=== PATIENT | male | born 1935 | race Caucasian/White ===

== ENCOUNTER → 2017-06-25 | Outpatient (CLI) | payer OTHER ==
[~2017-06-25] MED LIST: ASPIRIN; ASPIRIN325 PO; ATORVASTATIN CA40 MG PO; CALCIUM MAGNES1 EAC2 PO; CARVEDILOL12.5 MG PO; DUONEB 2.5-0.5 M3 ML INH; ELMIRON 100 MG100 M1 PO; FENOFIBRATE160 MG PO; FISH OIL 1,001000 M1 PO; FISH OIL 1,001000 M2 PO; FLOMAX0.4 MG PO; GLUCOPHAGE XR750 MG PO; KLOR-CON 1010 MEQ PO; LASIX 20 MG TAB20 MG PO; LASIX 40 MG TAB40 M2 PO; LEVAQUIN 500 M500 M2 PO; LEVAQUIN 500 M500 M4 PO; LOTREL 2.5-101 EACH PO; MACROBID 100 M100 M2 PO; MEDROLDOSEPACK PO; MULTIVITAMINS PO; NIASPAN ER 101000 M1 PO; NITROGLYCERIN0.4 MG SUBLING; PLAVIX 75 MG TA75 M1 PO; PLAVIX 75 MG TA75 MG PO; PREDNISONE 20 M20 MG PO; PROSCAR; PROSCAR 5MG TABL5 MG PO; VITAMIN D2000 UNIT PO
[2017-06-25 13:07] LABS: CALCIUM 8.9 mg/dL (8.5-10.1); CREATININE 1.2 mg/dL (0.6-1.3); POTASSIUM 3.4 mmol/L (3.5-5.1)
--- NOTE | 2017-07-22 16:50 | EKG ---
[place] [address] ELECTROCARDIOGRAM REPORT Name: MIKE STEWART Room: [facility]#: [id number] Admission: 06/25/17 Attend Phys: Corazon Bravo RN Discharge: Date of : 31 Report #: [id number] THIS REPORT FOR: //name// [facility] Test Date: 2017-07-22 Test Time: 13:37:15 Pat Name: MIKE STEWART Department: Room: Gender: M Home Companion: 25 : 1935 Requested By: Phillip Villatoro Order Number: [id number] Rachele MD: Wale Ortez Measurements Intervals [place] Rate: 69 P: 46 [place]: 213 QRS: 26 QRSD: 158 T: 209 QT: 453 QTc: 486 Interpretive Statements Sinus rhythm Ventricular premature complex Borderline prolonged [place] interval Left bundle branch block Compared to ECG 09/10/2016 14:56:04 Ventricular premature complex(es) now present Electronically Signed On 07-22-2017 16:49:49 BRUSH CLEARING LABORER by Wale Ortez [email or web address] <ELECTRONICALLY SIGNED> By: Wale Ortez MD, [facility] 07/22/17 1649 36 36 Wale Ortez MD, [facility] /EPI
== END ==
LOC: M.LAB 12:36
PROVIDERS: Nurse Practitioner
DX: I13.0 Hypertensive heart and chronic kidney disease with heart failure and stage 1 through stage 4 chronic kidney disease, or unspecified chronic kidney disease (principal); I50.9 Heart failure, unspecified; N18.3 Chronic kidney disease, stage 3 (moderate); E11.22 Type 2 diabetes mellitus with diabetic chronic kidney disease

== ENCOUNTER → 2017-07-22 | Outpatient (CLI) | payer OTHER ==
[2017-07-22 14:12] LABS: ABSOLUTE BASOPHILS 0.1 thou/uL (0.0-0.2); ABSOLUTE EOSINOPHILS 0.3 thou/uL (0.0-0.7); ABSOLUTE MONOCYTES 0.4 thou/uL (0.0-1.2); ABSOLUTE NEUTROPHILS 4.8 thou/uL (1.6-8.1); BASOPHILS 1.1 %; EOSINOPHILS 5.1 %; HEMATOCRIT 39.2 % (42.0-52.0); HEMOGLOBIN 13.2 gm/dL (14.0-18.0); LYMPHOCYTES 15.2 %; MCH 31.8 pg (26.0-34.0); MCHC 33.5 g/dL (28.0-37.0); MCV 94.8 fL (80.0-100.0); NUCLEATED RBCS 0 /100WBC; PLATELET COUNT* 132 thou/uL (150-400); POLYS 72.6 %; RBC 4.14 mil/uL (4.50-6.00); RDW-CV 14.1 % (10.5-14.5); WBC 6.6 thou/uL (4.0-11.0)
[2017-07-22 14:16] LABS: CALCIUM 9.1 mg/dL (8.5-10.1); CREATININE 1.1 mg/dL (0.6-1.3); POTASSIUM 3.7 mmol/L (3.5-5.1)
== END ==
LOC: M.RAD 13:19
PROVIDERS: Urology
DX: Z01.818 Encounter for other preprocedural examination (principal); M43.8X4 Other specified deforming dorsopathies, thoracic region; J43.8 Other emphysema; J84.10 Pulmonary fibrosis, unspecified; I10 Essential (primary) hypertension; N30.10 Interstitial cystitis (chronic) without hematuria

== ENCOUNTER → 2019-11-09 | Outpatient (CLI) | payer OTHER ==
[2019-11-09 16:02] LABS: ABSOLUTE EOSINOPHILS 0.2 thou/uL (0.0-0.7); ABSOLUTE LYMPHOCYTES 0.6 thou/uL (0.8-5.3); ABSOLUTE MONOCYTES 0.7 thou/uL (0.0-1.2); ABSOLUTE NEUTROPHILS 5.8 thou/uL (1.6-8.1); BASOPHILS 0.6 %; EOSINOPHILS 2.8 %; HEMATOCRIT 41.3 % (42.0-52.0); HEMOGLOBIN 14.3 gm/dL (14.0-18.0); LYMPHOCYTES 8.6 %; MCHC 34.6 g/dL (28.0-37.0); MCV 92.5 fL (80.0-100.0); MPV 8.8 fl. (7.2-11.1); NUCLEATED RBCS 0 /100WBC; PLATELET COUNT* 193 thou/uL (150-400); RBC 4.46 mil/uL (4.50-6.00); RDW-CV 14.4 % (10.5-14.5); WBC 7.3 thou/uL (4.0-11.0)
[2019-11-09 16:20] LABS: CALCIUM 8.9 mg/dL (8.5-10.1); CREATININE 1.5 mg/dL (0.6-1.3); POTASSIUM 3.8 mmol/L (3.5-5.1)
[2019-11-09 16:24] LABS: ALBUMIN 3.5 g/dL (3.4-5.0); DIRECT BILIRUBIN 0.1 mg/dL (<0.1-0.3); TOTAL BILIRUBIN 0.6 mg/dL (<0.1-1.0)
== END ==
LOC: M.CT 15:30
PROVIDERS: Internal Medicine
DX: S22.080S Wedge compression fracture of T11-T12 vertebra, sequela (principal); G20 Parkinson's disease; E11.8 Type 2 diabetes mellitus with unspecified complications; M85.88 Other specified disorders of bone density and structure, other site; M43.8X4 Other specified deforming dorsopathies, thoracic region; M47.816 Spondylosis without myelopathy or radiculopathy, lumbar region; J90 Pleural effusion, not elsewhere classified; W19.XXXA Unspecified fall, initial encounter

== ENCOUNTER 2020-03-22 15:17 | Inpatient (IN) | payer OTHER ==
[~2020-03-22] VITALS: Ht 180.3 cm; Wt 96.2 kg
[2020-03-22 15:25] VITALS: BP 194/80
[2020-03-22] MEDS ORDERED: LEXAPRO 10 MG T10 M2 PO (15:34)
[2020-03-22] MEDS ORDERED: FINASTERIDE5 MG PO (15:35)
[2020-03-22] MEDS ORDERED: HYDRALAZINE 10M10 MG PO (15:35)
[2020-03-22 15:59] LABS: ABSOLUTE BASOPHILS 0.1 thou/uL (0.0-0.2); ABSOLUTE EOSINOPHILS 0.2 thou/uL (0.0-0.7); ABSOLUTE LYMPHOCYTES 0.8 thou/uL (0.8-5.3); ABSOLUTE MONOCYTES 0.7 thou/uL (0.0-1.2); ABSOLUTE NEUTROPHILS 3.6 thou/uL (1.6-8.1); BASOPHILS 1.1 %; EOSINOPHILS 4.3 %; HEMATOCRIT 38.6 % (42.0-52.0); HEMOGLOBIN 13.2 gm/dL (14.0-18.0); LYMPHOCYTES 14.4 %; MCH 32.1 pg (26.0-34.0); MCHC 34.2 g/dL (28.0-37.0); MCV 94.1 fL (80.0-100.0); MONOCYTES 12.9 %; NUCLEATED RBCS 0 /100WBC; PLATELET COUNT* 157 thou/uL (150-400); POLYS 67.3 %; RDW-CV 14.2 % (10.5-14.5); WBC 5.4 thou/uL (4.0-11.0)
[2020-03-22 16:08] LABS: APTT 25.9 Seconds (25.0-31.3); INR 1.1; PROTIME 10.9 Seconds (9.20-11.50)
[2020-03-22 16:08] LABS: URINE BILIRUBIN NEGATIVE (Negative); URINE BLOOD 1+ (Negative); URINE CLARITY CLEAR; URINE COLOR YELLOW; URINE GLUCOSE-RANDOM NEGATIVE (Negative); URINE KETONES NEGATIVE (Negative); URINE LEUKOCYTES-REFLEX NEGATIVE (Negative); URINE NITRITE-REFLEX NEGATIVE (Negative); URINE PROTEIN 1+ (Negative); URINE UROBILINOGEN 0.2 E.U./dl (0.2-1.0)
[2020-03-22 16:09] LABS: ALBUMIN 3.5 g/dL (3.4-5.0); CREATININE 1.5 mg/dL (0.6-1.3); POTASSIUM 3.3 mmol/L (3.5-5.1); TOTAL BILIRUBIN 0.5 mg/dL (<0.1-1.0); TOTAL PROTEIN 6.7 g/dL (6.4-8.2)
[2020-03-22 16:17] LABS: CALCIUM 9.1 mg/dL (8.5-10.1)
[2020-03-22 16:33] LABS: BACTERIA-REFLEX >30 Many /HPF (None Seen); HYALINE CASTS 0-3 Few /LPF (None Seen); SQUAMOUS >10 Many /LPF (0-3); URINE RBC >20 Many /HPF (0-2); URINE WBC-REFLEX 6-15 Few /HPF (0-5)
[2020-03-22 16:34] LABS: CRYSTALS None Seen /LPF (None Seen)
[2020-03-22 20:00] VITALS: BP 183/83
[2020-03-22 20:41] VITALS: BP 172/74
[2020-03-22] MEDS ORDERED: ASA81BEC PO (22:32)
[2020-03-22] MEDS ORDERED: COREG12.5 MG PO (22:37)
[2020-03-22] MEDS ORDERED: COREG25 M1 PO (22:38)
[2020-03-22] MEDS ORDERED: HYDRALAZINE 5050 MG PO (22:40)
[2020-03-22] MEDS ORDERED: FISH OIL 1,0001 EAC9 PO (22:43)
[2020-03-22] MEDS ORDERED: ZESTRIL40 MG PO (22:43)
[2020-03-22] MEDS ORDERED: DAILY VALUE1 EAC1 PO (22:45)
[2020-03-22] MEDS ORDERED: ELMIRON 100 MG100 M1 PO (22:46)
[2020-03-22] MEDS ORDERED: MELATONIN3 M1 PO (22:47)
[2020-03-22] MEDS ORDERED: K-DUR10 MEQ PO (22:48)
[2020-03-22] MEDS ORDERED: CARBIDOPA-LEVO1 EAC5 PO (22:49)
[2020-03-23] VITALS (10 sets, daily range): BP systolic 132–185; BP diastolic 59–76
--- NOTE | 2020-03-23 04:56 | NUR ---
REPORT RECIEVED FROM ER. PT ORIENTED TO ROOM, CALL LIGHT SHOWN, FALL AGREEMENT WENT OVER, PT STATED UNDERSTANDING. ADMISSION DOCUMENTED. MEDS GIVEN PER E-MAR. NEW IV STARTED. PT REMAINED NPO AFTER 0000 FOR CARDIOLOGY CONSULT.
[2020-03-23 09:35] LABS: CALCIUM 8.4 mg/dL (8.5-10.1); CREATININE 1.5 mg/dL (0.6-1.3); MAGNESIUM 1.6 mg/dL (1.8-2.4); POTASSIUM 3.4 mmol/L (3.5-5.1)
--- NOTE | 2020-03-23 11:37 | NUR ---
Pt is A&O. Resides at home with his . Normally independent. Pt has a walker and cane that he can use for mobility, primarily uses the cane. No home o2. Hx of HH, does not recall with which HH. Hx of skilled at [facility] and [facility], [place]. Hx of cardiac rehab. Pt is unsure of what he will need at sd, Pt states that yesterday he was unable to stand on his home. Plan PT/OT evals. Pt is open to skilled if needed, would prefer HH. CM following.
--- NOTE | 2020-03-23 12:48 | NUR ---
Nutrition: Pt admitted with syncope, CHF. H/o DM, HTN, CAD, Parkinsons. Seen for Elliot score 7. Alb 3.5, BG 155. Pt is currently NPO. Hopeful for timely diet advancement to CHO controlled. Wt is 206#. Pt from VO. Mild risk. Will f/u on po intake, diet order, labs 03/25/20.
--- NOTE | 2020-03-23 16:20 | 2DMMODE ---
[place] [address] 2 D/M-MODE ECHOCARDIOGRAM Name: MARYFERNANDOMIKE F Room: [address] IN .R.#: [id number] Admission: 03/23/20 Attend Phys: Beni Green Discharge: Date of : 31 Date of Service: 03/23/20 1619 Report #: [id number] THIS REPORT FOR: cc: Tabitha Guzman MD, Lin W. MD Holkins, John M. MD [facility] ~ APPROVED REPORT Study performed: 03/23/2020 10:18:11 EXAM: Comprehensive 2D, Doppler, and color-flow Echocardiogram Patient Location: Bedside BSA: 2.11 HR: 56 bpm BP: 177/71 mmHg Other Information Study Quality: Fair Indications CVA/TIA Syncope Echo Enhancing Agent Indication: Rule out Shunt Agent(s) / Amount(s) Used: Agitated Saline cc 2D Dimensions IVSd: 15.07 (7-11mm) LVOT Diam: 18.79 (18-24mm) LVDd: 57.12 mm PWd: 14.25 (7-11mm) Ascending Ao: 35.46 (22-36mm) LVDs: 36.22 (25-40mm) Aortic Root: 32.27 mm Volumes Left Atrial Volume (Systole) LA ESV Index: 59.80 mL/m2 Aortic Valve AoV Peak Maverick.: 2.65 m/s AO Peak Gr.: 28.05 mmHg LVOT Max P.08 mmHg AO Mean Gr.: 13.67 mmHg LVOT Mean P.37 mmHg LVOT Max V: 0.88 m/[place] [address] 2 D/M-MODE ECHOCARDIOGRAM Name: TERRYMIKE F Room: [address] IN [facility].#: [id number] Admission: 03/23/20 Attend Phys: Beni Green Discharge: Date of : 31 Date of Service: 03/23/20 1619 Report #: [id number] AO V2 VTI: 58.70 cm LVOT Mean V: 0.53 m/s ELLE (VTI): 0.95 cm2 LVOT V1 VTI: 20.05 cm Mitral Valve E/A Ratio: 0.79 MV Decel. Time: 281.78 ms MV E Max Maverick.: 0.65 m/s MV PHT: 81.72 ms MVA (PHT): 2.69 cm2 TDI E/Lateral E': 9.29 E/Medial E': 10.83 Medial E' Maverick.: 0.06 m/s Lateral E' Maverick.: 0.07 m/s Pulmonary Valve PV Peak Maverick.: 0.83 m/s PV Peak Gr.: 2.76 mmHg Tricuspid Valve RAP Estimate: 5.00 mmHg TR Peak Gr.: 21.12 mmHg RVSP: 26.12 mmHg PA Pressure: 26.12 mmHg Left Ventricle Left ventricle is mildly dilated. There is moderate diffuse hypokinesis of left ventricular wall motion. There is normal left ventricular wall thickness Left ventricular systolic function is moderately decreased. LVEF is 35-40%. Grade I - abnormal relaxation pattern. Right Ventricle The right ventricle is normal size. The right ventricular systolic function is normal. Atria Left atrium is moderately dilated. Injection of bubbles is not conclusive due to poor image quality. Right atrium is borderline dilated. Aortic Valve The Aortic valve is sclerotic. Trace aortic regurgitation. Mild aortic stenosis. Mitral Valve The mitral valve is normal in structure. Trace mitral regurgitation. No evidence [place] [address] 2 D/M-MODE ECHOCARDIOGRAM Name: MIKE STEWART Room: [address]#: [id number] Admission: 03/23/20 Attend Phys: Beni Green Discharge: Date of : 31 Date of Service: 03/23/20 1619 Report #: [id number] Tricuspid Valve The tricuspid valve is normal in structure. Trace tricuspid regurgitation. Pulmonic Valve The pulmonary valve is normal in structure. There is no pulmonic valvular regurgitation. Great Vessels The aortic root is normal in size. IVC is not well visualized. Pericardium There is no pericardial effusion. <Conclusion> Left ventricle is mildly dilated. There is normal left ventricular wall thickness Left ventricular systolic function is moderately decreased. LVEF is 35-40%. Grade I - abnormal relaxation pattern. The right ventricle is normal size. Left atrium is moderately dilated. Right atrium is borderline dilated The Aortic valve is sclerotic. Trace aortic regurgitation. Mild aortic stenosis. The mitral valve is normal in structure. The tricuspid valve is normal in structure. There is no pericardial effusion. There is moderate diffuse hypokinesis of left ventricular wall motion. <ELECTRONICALLY SIGNED> By: Shine Harper MD, FACC 03/23/20 1619 18 18 Shine Harper MD, FACC /INF
--- NOTE | 2020-03-23 17:08 | EKG ---
[place] [address] ELECTROCARDIOGRAM REPORT Name: MIKE STEWART Room: [address] ADM IN M.R.#: [id number] Admission: 03/23/20 Attend Phys: Beni Green Discharge: Date of : 31 Date of Service: 03/22/20 1527 Report #: [id number] THIS REPORT FOR: //name// [facility] ED Test Date: 2020-03-22 Test Time: 15:27:47 Pat Name: MIKE STEWART Department: Room: [address] Gender: M Critical Systems Technician: : 1935 Requested By: Beni Mitchell Order Number: [id number] Rachele MD: Shine Harper Measurements Intervals [place] Rate: 58 P: 62 IA: 241 QRS: 3 QRSD: 162 T: 181 QT: 481 QTc: 473 Interpretive Statements Sinus rhythm Ventricular premature complex Prolonged [place] interval Left bundle branch block Baseline wander in lead(s) II,aVR,aVF Compared to ECG 07/22/2017 13:37:15 No significant changes Electronically Signed On 03-23-2020 17:07:42 CDT by Shine Harper [email or web address] <ELECTRONICALLY SIGNED> By: Shine Harper MD, FAC 03/23/20 1707 1527 1527 Shine Harper MD, FAC /EPI
--- NOTE | 2020-03-23 17:09 | EKG ---
[place] [address] ELECTROCARDIOGRAM REPORT Name: MIKE STEWART Room: [address] IN M.R.#: [id number] Admission: 03/23/20 Attend Phys: Beni Green Discharge: Date of : 31 Date of Service: 03/22/20 2312 Report #: [id number] THIS REPORT FOR: //name// [facility] Test Date: 2020-03-22 Test Time: 23:12:23 Pat Name: MIKE STEWART Department: Room: [facility] Gender: M Battery Vent Plug Inserter: HOMA : 1935 Requested By: Chad Guzman Order Number: [id number] MD: Shine Harper Measurements Intervals [place] Rate: 56 P: 1 MA: 237 QRS: -11 QRSD: 160 T: 172 QT: 507 QTc: 490 Interpretive Statements Sinus rhythm Ventricular premature complex Prolonged [place] interval Left bundle branch block Compared to ECG 07/22/2017 13:37:15 No significant changes Electronically Signed On 03-23-2020 17:09:28 CDT by Shine Harper [email or web address] <ELECTRONICALLY SIGNED> By: Shine Harper MD, [facility] 03/23/20 1709 2312 2312 Shine Harper MD, [facility] /EPI
[2020-03-24 01:15] VITALS: BP 127/61
[2020-03-24 04:35] VITALS: BP 145/62
[2020-03-24 04:55] LABS: HEMATOCRIT 34.8 % (42.0-52.0); HEMOGLOBIN 12.1 gm/dL (14.0-18.0); MCH 32.7 pg (26.0-34.0); MCHC 34.7 g/dL (28.0-37.0); MCV 94.1 fL (80.0-100.0); MPV 8.5 fl. (7.2-11.1); RBC 3.7 mil/uL (4.50-6.00); RDW-CV 13.8 % (10.5-14.5); WBC 6.2 thou/uL (4.0-11.0)
[2020-03-24 05:08] LABS: CALCIUM 8.4 mg/dL (8.5-10.1); CREATININE 1.6 mg/dL (0.6-1.3); MAGNESIUM 1.7 mg/dL (1.8-2.4); POTASSIUM 3.4 mmol/L (3.5-5.1)
--- NOTE | 2020-03-24 06:04 | NUR ---
PT SLEPT MOST OF SHIFT. ASSESSMENT DOCUMENTED. MEDS GIVEN PER E-AUG. IV PATENT. NO REPORTS OF PAIN THIS SHIFT. FALL PRECAUTIONS IN PLACE.
[2020-03-24 07:57] VITALS: BP 140/90
[2020-03-24 12:00] VITALS: BP 162/73
[2020-03-24 13:09] LABS: CHOLESTEROL 162 mg/dL (<200); HDL CHOLESTEROL 39 mg/dL (>40); LDL CHOLESTEROL 112 mg/dL (<100); TC:HDL 4.2 Ratio (Not establshd); TRIGLYCERIDE 55 mg/dL (<150); VLDL 11 mg/dL (<40)
[2020-03-24 13:13] LABS: SERUM ASSESSMENT Clear
--- NOTE | 2020-03-24 14:54 | NUR ---
CM INFORMED DURING PRIME ROUNDING OF BARRIERS TO D/C INCLUDING PENDING CULTURES AND PT/OT EVALS. CM WILL REMAIN AVAILABLE TO ASSIST AND FOLLOW NEEDED.
[2020-03-24 16:00] VITALS: BP 156/70
--- NOTE | 2020-03-24 19:04 | NUR ---
PATIENT RESTING IN BED. UP WITH ASSIST X1. VSS. EXPECTED DC TOMORROW. HOURLY ROUNDING COMPELTDFOR [facility]
[2020-03-24 19:40] VITALS: BP 163/74
[2020-03-25] VITALS: BP 148/65
[2020-03-25 04:24] VITALS: BP 135/56
[2020-03-25 05:10] LABS: CALCIUM 8.8 mg/dL (8.5-10.1); CREATININE 1.5 mg/dL (0.6-1.3); MAGNESIUM 1.9 mg/dL (1.8-2.4); POTASSIUM 3.9 mmol/L (3.5-5.1)
[2020-03-25 08:00] VITALS: BP 155/67
[2020-03-25] MEDS ORDERED: CARVEDILOL3.125 MG PO (10:03)
[2020-03-25] MEDS ORDERED: LASIX 20 MG TAB20 MG PO (10:03)
[2020-03-25] MEDS ORDERED: CEFUROXIME250 MG PO (10:07)
[2020-03-25 12:00] VITALS: BP 118/67
== END 2020-03-25 12:15 | disposition home or self-care (01) | DRG 291 ==
LOC: M.ERS 15:17 → M.TBA-ER 17:21 → M.2W 17:21
PROVIDERS: Emergency Medicine Emergency Medical Services; Internal Medicine; Registered Nurse; ADMIT Family Medicine; ATTEND Family Medicine
DX: I13.0 Hypertensive heart and chronic kidney disease with heart failure and stage 1 through stage 4 chronic kidney disease, or unspecified chronic kidney disease (principal); I50.23 Acute on chronic systolic (congestive) heart failure; G92 Toxic encephalopathy; N30.11 Interstitial cystitis (chronic) with hematuria; Z20.828 Contact with and (suspected) exposure to other viral communicable diseases; E78.5 Hyperlipidemia, unspecified; N18.30 Chronic kidney disease, stage 3 unspecified; I95.1 Orthostatic hypotension; F44.4 Conversion disorder with motor symptom or deficit; E87.6 Hypokalemia; G20 Parkinson's disease; I25.10 Atherosclerotic heart disease of native coronary artery without angina pectoris; I25.5 Ischemic cardiomyopathy; Z79.82 Long term (current) use of aspirin; Z85.51 Personal history of malignant neoplasm of bladder; Z79.899 Other long term (current) drug therapy; Z95.5 Presence of coronary angioplasty implant and graft; Z88.2 Allergy status to sulfonamides; Z88.8 Allergy status to other drugs, medicaments and biological substances; Z88.1 Allergy status to other antibiotic agents; Z91.040 Latex allergy status

== ENCOUNTER 2021-06-02 14:05 | Inpatient (IN) | payer OTHER ==
[~2021-06-02] VITALS: Ht 180.3 cm; Wt 92.5 kg
[~2021-06-02 14:05] MED LIST changes: +ASA81BEC PO; +CARBIDOPA-LEVO1 EAC5 PO; +CARVEDILOL3.125 MG PO; +CEFUROXIME250 MG PO; +COREG12.5 MG PO; +COREG25 M1 PO; +DAILY VALUE1 EAC1 PO; +FINASTERIDE5 MG PO; +FISH OIL 1,0001 EAC9 PO; +HYDRALAZINE 10M10 MG PO; +HYDRALAZINE 2525 MG PO; +K-DUR10 MEQ PO; +LEXAPRO 10 MG T10 M2 PO; +MELATONIN3 M1 PO; +ZESTRIL40 MG PO
[2021-06-02 14:21] VITALS: BP 196/68
[2021-06-02 14:50] LABS: ABSOLUTE BASOPHILS 0.1 thou/uL (0.0-0.2); ABSOLUTE EOSINOPHILS 0.1 thou/uL (0.0-0.7); ABSOLUTE LYMPHOCYTES 0.6 thou/uL (0.8-5.3); ABSOLUTE MONOCYTES 0.7 thou/uL (0.0-1.2); ABSOLUTE NEUTROPHILS 5.6 thou/uL (1.6-8.1); BASOPHILS 0.7 %; EOSINOPHILS 1.7 %; HEMATOCRIT 38.4 % (42.0-52.0); HEMOGLOBIN 12.7 gm/dL (14.0-18.0); LYMPHOCYTES 9.1 %; MCH 31.5 pg (26.0-34.0); MCHC 33.1 g/dL (28.0-37.0); MCV 95.2 fL (80.0-100.0); MONOCYTES 10.2 %; MPV 8.6 fl. (7.2-11.1); NUCLEATED RBCS 0 /100WBC; PLATELET COUNT* 166 thou/uL (150-400); POLYS 78.3 %; RBC 4.03 mil/uL (4.50-6.00); WBC 7.2 thou/uL (4.0-11.0)
[2021-06-02 14:58] LABS: CALCIUM 9.1 mg/dL (8.5-10.1); CREATININE 1.7 mg/dL (0.6-1.3); POTASSIUM 3.9 mmol/L (3.5-5.1)
[2021-06-02 15:09] LABS: ALBUMIN 3.6 g/dL (3.4-5.0); TOTAL BILIRUBIN 1.3 mg/dL (<0.1-1.0); TOTAL PROTEIN 6.9 g/dL (6.4-8.2)
[2021-06-02] MEDS ORDERED: NORVASC 2.5 MG2.5 M1 PO (15:44)
[2021-06-02] MEDS ORDERED: LIPITOR 20 MG T20 M1 PO (15:45)
[2021-06-02] MEDS ORDERED: D3-200050 MCG PO (15:46)
--- NOTE | 2021-06-02 19:11 | EKG ---
[place] [address] ELECTROCARDIOGRAM REPORT Name: TERRYMIKE F Room: [place] [address] ADM IN M.R.#: [id number] Admission: 06/02/21 Attend Phys: Ayan Figueroa Discharge: Date of : 31 Date of Service: 06/02/21 1430 Report #: [id number] THIS REPORT FOR: //name// [facility] ED Test Date: 2021-06-02 Test Time: 14:30:36 Pat Name: MIKE STEWART Department: Room: [facility] Gender: M Certified Massage Therapist: [place] : 1935 Requested By: Chad Guzman Order Number: [id number] MD: Wale Ortez Measurements Intervals [place] Rate: 62 P: SC: QRS: -7 QRSD: 159 T: 127 QT: 595 QTc: 605 Interpretive Statements sinus bradycardia Ventricular bigeminy Left bundle branch block Compared to ECG 03/22/2020 23:12:23 pvc's noted Electronically Signed On 06-02-2021 19:11:16 STROBOSCOPE OPERATOR by Wale Ortez [email or web address] <ELECTRONICALLY SIGNED> By: Wale Ortez MD, FACC 06/02/21 1911 1430 1430 Wale Ortez MD, [facility] /EPI
[2021-06-02 20:50] LABS: URINE BILIRUBIN NEGATIVE (Negative); URINE BLOOD 1+ (Negative); URINE CLARITY CLEAR; URINE COLOR YELLOW; URINE GLUCOSE-RANDOM NEGATIVE (Negative); URINE KETONES NEGATIVE (Negative); URINE LEUKOCYTES NEGATIVE (Negative); URINE NITRITE NEGATIVE (Negative); URINE PROTEIN 1+ (Negative); URINE SPECIFIC GRAVITY 1.015 (1.005-1.030); URINE UROBILINOGEN 0.2 E.U./dl (0.2-1.0)
[2021-06-02 20:56] LABS: BACTERIA 1-9 Few /HPF (None Seen); CRYSTALS None Seen /LPF (None Seen); HYALINE CASTS 0-3 Few /LPF (None Seen); MUCUS None Seen strn/LPF (None Seen); SQUAMOUS >10 Many /LPF (0-3); URINE RBC 3-10 Few /HPF (0-2)
[2021-06-02 20:57] LABS: URINE WBC 0-5 Rare /HPF (0-5)
[2021-06-02 21:00] VITALS: BP 155/59
[2021-06-02 23:00] VITALS: BP 157/55
[2021-06-03] VITALS (8 sets, daily range): BP systolic 106–160; BP diastolic 50–64
[2021-06-04 00:20] VITALS: BP 142/56
[2021-06-04 05:37] LABS: ANION GAP 10 mmol/L (7-16); BUN 44 mg/dL (7-18); CALCIUM 8.3 mg/dL (8.5-10.1); CHLORIDE 106 mmol/L (98-107); CHOLESTEROL 93 mg/dL (<200); CO2 25 mmol/L (21-32); GLUCOSE 140 mg/dL (70-99); HDL CHOLESTEROL 46 mg/dL (>40); LDL CHOLESTEROL 40 mg/dL (<100); POTASSIUM 3.7 mmol/L (3.5-5.1); SODIUM 141 mmol/L (136-145); TRIGLYCERIDE 35 mg/dL (<150); VLDL 7 mg/dL (<40)
[2021-06-04 05:47] LABS: SERUM ASSESSMENT CLEAR
[2021-06-04 05:58] VITALS: BP 176/67
[2021-06-04 08:00] VITALS: BP 156/57
--- NOTE | 2021-06-04 10:41 | EKG ---
[place] [address] ELECTROCARDIOGRAM REPORT Name: MIKE STEWART Room: [address] ADM IN M.R.#: [id number] Admission: 06/02/21 Attend Phys: Ayan Figueroa Discharge: Date of : 31 Date of Service: 06/03/21 1220 Report #: [id number] THIS REPORT FOR: //name// [facility] ED Test Date: 2021-06-03 Test Time: 12:20:47 Pat Name: MIKE STEWART Department: Room: [facility] Gender: M Marketing Professional: ZHEN : 1935 Requested By: Wale Ortez Order Number: [id number] Rachele MD: Wale Ortez Measurements Intervals [place] Rate: 29 P: -15 UT: 258 QRS: -8 QRSD: 158 T: 183 QT: 695 QTc: 483 Interpretive Statements Sinus bradycardia second degree AV block Mobitz type I Left bundle branch block Baseline wander in lead(s) II,III,aVR,aVF Compared to ECG 06/02/2021 14:30:36 second degree block noted Ventricular premature complex(es) no longer present Electronically Signed On 06-04-2021 10:40:39 ACETYLENE CUTTER by Wale Ortez [email or web address] <ELECTRONICALLY SIGNED> By: Wale Ortez MD, [facility] 06/04/21 1040 1220 1220 Wale Ortez MD, [facility] /EPI
[2021-06-04 16:00] VITALS: BP 143/74; BP 183/50
[2021-06-04 20:14] VITALS: BP 186/72
[2021-06-05 00:57] VITALS: BP 152/60
[2021-06-05 04:40] VITALS: BP 150/49
[2021-06-05 08:00] VITALS: BP 189/67
--- NOTE | 2021-06-05 11:47 | CON ---
[address] [address] CONSULTATION Name: MIKE STEWART Room: [address] IN M.R.#: [id number] Admission: 06/02/21 Attend Phys: Ha Hess Discharge: Date of : 31 Report #: [id number] THIS REPORT FOR: cc: Yemi Kramer MD [facility] Yemi Kramer MD [facility] Wale Ortez MD [facility] ~ cc: Tabitha Guzman MD DATE OF CONSULTATION: 06/02/2021 CARDIOLOGY CONSULTATION HISTORY OF PRESENT ILLNESS: The patient is an 85-year-old white male who I was asked to see in the Emergency Room today after he was noted to be bradycardic. The patient had a coronary artery stent placed years ago here at [place]. He has a history of a cardiomyopathy with an ejection fraction of 35%. He is not very active at this time because of Parkinson's, uses a walker. He actually saw Dr. Kramer in March of this year. In the past, he developed significant bradycardia on higher doses of carvedilol. When Dr. Kramer saw him in March, he made no changes in his medications. The patient recently complained to being weak and short of breath. He noted some chest tightness. He denied any fever, cough, lower extremity edema, palpitations or syncope. He came to the Emergency Room today and was noted to be bradycardic. Cardiology consultation was requested. PAST MEDICAL HISTORY: Otherwise, significant for prostate surgery. He has had bladder cancer. He has a history of hypertension, hyperlipidemia, Parkinson's, chronic kidney disease, diabetes, history of nonsustained ventricular tachycardia. MEDICATIONS: Include amlodipine, Lipitor, Sinemet, carvedilol, Lexapro, Proscar, Lasix, hydralazine, lisinopril, potassium, Flomax. ALLERGIES: HE HAS PREVIOUS INTOLERANCE TO AMOXICILLIN, SIMVASTATIN, SULFA DRUGS. FAMILY HISTORY: Negative for heart disease. SOCIAL HISTORY: He is . He and his live in [place]. No smoking, no alcohol abuse. REVIEW OF SYSTEMS: No history of stroke, liver disease or asthma. He has chronic kidney disease. He has had bladder cancer. No psychiatric illness. [place] [address] CONSULTATION Name: MIKE STEWART Room: [address]#: [id number] Admission: 06/02/21 Attend Phys: Ha Hess Discharge: Date of : 31 Report #: [id number] PHYSICAL EXAMINATION: GENERAL: Revealed an elderly male, appeared in no acute distress. VITAL SIGNS: His blood pressure 170/70, his pulse is 40. He is afebrile. HEENT: He was anicteric. Conjunctivae pink. Mucous membranes moist. NECK: Veins not appeared distended. CHEST: Clear to auscultation. CARDIAC: Regular, bradycardia. No significant murmur. ABDOMEN: Soft. EXTREMITIES: Had trace edema. Dorsalis pedis pulse 1+ bilaterally. SKIN: Cool and dry. NEUROLOGIC: Nonfocal. IMAGING DATA: His ECG on admission showed sinus bradycardia with ventricular premature complexes and bigeminy. There appears to be a left bundle branch block. His echocardiogram was done a year ago in 02/2020 that showed ejection fraction 35% with biatrial enlargement, aortic sclerosis. There was evidence of mild aortic stenosis with a peak gradient across the aortic valve of 28 mmHg. There were x-rays done today included a portable chest x-ray that showed cardiomegaly, mild vascular congestion. LABORATORY DATA: BUN 25, creatinine 1.7, it has been as high as 2.7 in the past. His high sensitivity troponin is 125. BNP 2989. His TSH a year ago was 1.5. His hematocrit 38.4. His COVID antigen stat test was negative. IMPRESSION AND RECOMMENDATIONS: 1. Coronary artery disease. Previous stent in his LAD in 2014. No recent angina. I would continue aspirin 81 mg a day. 2. Bradycardia. I would discontinue carvedilol. 3. Cardiomyopathy. The patient is on hydralazine, MARSHAL inhibitor. I would consider adding Aldactone. 4. Hypertension. The patient is on a calcium ailyn, hydralazine, MARSHAL inhibitor. 5. Hyperlipidemia. The patient is on a statin drug. 6. Chronic kidney disease. 7. Parkinson's disease. The patient's activity is very limited. 8. History of nonsustained ventricular tachycardia. The patient is not a candidate for an ICD. 9. History of bladder cancer. <ELECTRONICALLY SIGNED> By: Wale Ortez MD, [facility] 06/05/21 1147 1630 Katie Ortez MD, FACC /nt
[2021-06-05 12:00] VITALS: BP 180/80
--- NOTE | 2021-06-05 15:33 | EKG ---
[place] [address] ELECTROCARDIOGRAM REPORT Name: MIKE STEWART Room: [address] ADM IN M.R.#: [id number] Admission: 06/02/21 Attend Phys: Ayan Figueroa Discharge: Date of : 31 Date of Service: 06/05/21 1040 Report #: [id number] THIS REPORT FOR: //name// [facility] Test Date: 2021-06-05 Test Time: 10:40:55 Pat Name: MIKE STEWART Department: Room: [address] Gender: M Cylinder Loader: KF : 1935 Requested By: Wale Ortez Order Number: [id number] Rachele MD: Shine Harper Measurements Intervals [place] Rate: 34 P: 20 DE: 269 QRS: 1 QRSD: 163 T: 184 QT: 594 QTc: 447 Interpretive Statements Sinus rhythm with 2-1 AV block Left bundle branch block Compared to ECG 06/03/2021 12:20:47 AV block persists Sinus bradycardia no longer present Electronically Signed On 06-05-2021 15:33:26 DOVETAIL MACHINE OPERATOR by Shine Harper [email or web address] <ELECTRONICALLY SIGNED> By: Shine Harper MD, [facility] 06/05/21 1533 1040 1040 Shine Harper MD, [facility] /EPI
[2021-06-05 19:30] VITALS: BP 171/77
[2021-06-06 00:20] VITALS: BP 166/74
[2021-06-06 04:22] VITALS: BP 152/78
[2021-06-06 08:00] VITALS: BP 193/88
--- NOTE | 2021-06-06 08:55 | CARD ---
[address] [address] CARDIAC CATH REPORT Name: MIKE STEWART Room: [address] IN [facility]#: [id number] Admission: 06/02/21 Attend Phys: Ha Hess Discharge: Date of : 31 Report #: [id number] THIS REPORT FOR: cc: Yemi Kramer MD [facility] Yemi Kramer MD [facility] MD [facility] ~ APPROVED REPORT Study performed: 06/05/2021 15:45:23 Patient Status: In-Patient Room #: 231 Event Personnel: Scarlett Hutson RN, Coretta Marvin RTR, Candido Urban RTR Exam: Insertion of Dual Chamber ICD Indications: 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 Patient Info Last EF%: 35% Date: 04/12 NYHA Heart Class: II CHF: Chronic Systolic Reason for implant: Primary prevention and need for underlying pacing Intraoperative Conscious Sedation Sedation start time: 1645 Case end Time: 1745 Fentanyl 25.0 mcg Versed 1.0 mg Implanted Devices: Rivacor 7 DEEPAK, Ref# [id number], Ser# [id number] V-Lead, Plexa Pro MRI S 65, Ref# [id number], Ser# [id number] A-Lead, Solia S 53, Ref# [id number], Ser# [id number] Procedure After explaining the risks, benefits, and alternative options, informed consent was obtained from the patient. The patient was brought to the cardiac catheterization lab and the left chest and shoulder were prepped and draped in the usual fashion. During this case, Fluoroscopy and visipaque 20cc [place] [address] CARDIAC CATH REPORT Name: TERRYMIKE F Room: [address]#: [id number] Admission: 06/02/21 Attend Phys: Ha Hess Discharge: Date of : 31 Report #: [id number] imaging. IV conscious sedation was used throughout procedure with appropriate monitoring and was performed in the presence of a registered nurse who was an independent trained observer other than the physician performing the procedure. The area of the left shoulder was prepped and draped in sterile fashion. Local anesthesia was achieved with 1% lidocaine. Next after an initial incision was made a device pocket was formed over the left pectoralis muscle using electrocautery and blunt dissection. Next using a micropuncture kit the left subclavian vein was accessed and ultimately a safety J guidewire advanced to the area of the right atrium under fluoroscopic guidance. The wire was externally fixed with a Wilma forcep. The micropuncture kit was utilized a second time to access the left subclavian vein and a second safety J guidewire advanced to the right atrium under fluoroscopic guidance. Next an 8 [place] Islander tear-away introducer was advanced over the free guidewire. The dilator and guidewire were removed and a pacing ICD lead advanced to a secure position within the right ventricular apex. The lead was actively fixed. Thresholds were checked and deemed to be satisfactory. Adequate sensing was assured. There was no diaphragmatic stimulation with maximum output pacing. Next utilizing the remaining guidewire a 6 [place] Islander introducer was advanced over the guidewire. The guidewire and dilator were removed and a a pacing lead advanced to a secure spot within the right atrial appendage. The lead was actively fixed. Thresholds were checked and deemed to be adequate. Adequate sensing was assured. There was no phrenic nerve stimulation with maximum output pacing. Next after assuring adequate slack in the leads the atrial and ventricular pacing ICD lead were secured within the device pocket using the designated cuffs and 0 silk suture. The device pocket was then flushed with antibiotic solution. Next a dual-chamber pacing ICD generator was attached to the atrial and pacing ICD ventricular leads. The device and redundant leads were then placed within the device pocket. The deep tissues were closed with interrupted stitches of 2-0 Vicryl. The skin incision was then closed with a single subcuticular stitch of 4-0 Vicryl. Several Steri-Strips were placed across the incision. A sterile Telfa dressing was then covered with a Tegaderm. The patient tolerated the procedure well without complication. Complications The patient tolerated the procedure well and there were no complications associated with the procedure. Findings [address] [place] [address] CARDIAC CATH REPORT Name: MIKE STEWART Room: [address] IN M.R.#: [id number] Admission: 06/02/21 Attend Phys: Ha Hess Discharge: Date of : 31 Report #: [id number] The sensed P wave was 2.8 mV. The sensed R wave was 8.5 mV. Atrial lead pacing impedance 468 ohms. Ventricular lead pacing impedance 769 ohms. Atrial lead threshold 1.0 V at 0.40 ms. Ventricular lead threshold 0.9 V at 0.40 ms. Conclusion 1. Ischemic cardiomyopathy with ejection fraction of 35%. 2. Second-degree heart block with 2-1 conduction and severe bradycardia. 3. Successful placement of a dual-chamber pacing ICD. Recommendations 1. Follow-up site check in 1 week. 2. Follow-up device interrogation in 4 to 6 weeks. <ELECTRONICALLY SIGNED> By: Yemi Kramer MD, FACC 06/06/2155 4 0855Micgennaro Kramer MD, FACC /INF
--- NOTE | 2021-06-06 09:02 | EKG ---
[place] [address] ELECTROCARDIOGRAM REPORT Name: MIKE STEWART Room: [address] ADM IN M.R.#: [id number] Admission: 06/02/21 Attend Phys: Ayan Figueroa Discharge: Date of : 31 Date of Service: 06/06/21 0555 Report #: [id number] THIS REPORT FOR: //name// [facility] Test Date: 2021-06-06 Test Time: 05:55:28 Pat Name: MIKE STEWART Department: Room: [address] Gender: M Orthopaedic Doctor: [id number] : 1935 Requested By: Yemi Kramer Order Number: [id number] Reading MD: Yemi Kramer Measurements Intervals [place] Rate: 126 P: 0 [place]: 128 QRS: 260 QRSD: 180 T: 12 QT: 413 QTc: 599 Interpretive Statements Atrial-ventricular dual-paced complexes No further analysis attempted due to paced rhythm Baseline wander in lead(s) I,II,aVR Compared to ECG 06/05/2021 10:40:55 Sinus rhythm no longer present Left bundle-branch block no longer present Electronically Signed On 06-06-2021 9:02:03 SUPERINTENDENT OPERATIONS DIVISION by Yemi Kramer [email or web address] <ELECTRONICALLY SIGNED> By: Yemi Kramer MD, FACC 06/06/21901 4 4 Yemi Kramer MD, FAC /EPI
--- NOTE | 2021-06-06 09:16 | 2DMMODE ---
[place] [address] 2 D/M-MODE ECHOCARDIOGRAM Name: MIKE STEWART Room: [address] IN [facility]#: [id number] Admission: 06/02/21 Attend Phys: Ayan Figueroa Discharge: Date of : 31 Date of Service: 06/06/21 0916 Report #: [id number] THIS REPORT FOR: cc: Yemi Kramer MD [facility]ITALYemi Marx MD, FACC, Michael J. MD FACC ~ ADDENDUM APPROVED REPORT Study performed: 06/05/2021 14:01:05 EXAM: Comprehensive 2D, Doppler, and color-flow Echocardiogram Patient Location: In-Patient Room #: [facility] Status: routine BSA: 2.13 HR: 30 bpm BP: 150/49 mmHg Rhythm: NSR Indications Dyspnea 2D Dimensions IVSd: 14.00 (7-11mm) LVOT Diam: 23.12 (18-24mm) LVDd: 68.62 mm PWd: 14.40 (7-11mm) Ascending Ao: 34.15 (22-36mm) LVDs: 56.50 (25-40mm) Aortic Root: 34.78 mm Volumes Left Atrial Volume (Systole) LA ESV Index: 54.10 mL/m2 Aortic Valve AoV Peak Maverick.: 2.55 m/s AO Peak Gr.: 26.10 mmHg LVOT Max P.75 mmHg AO Mean Gr.: 13.89 mmHg LVOT Mean P.60 mmHg LVOT Max V: 0.97 m/s AO V2 VTI: 63.58 cm LVOT Mean V: 0.57 m/s ELLE (VTI): 1.76 cm2 LVOT V1 VTI: 26.62 cm Mitral Valve E/A Ratio: 0.76 MV Decel. Time: 256.92 [place] [address] 2 D/M-MODE ECHOCARDIOGRAM Name: MIKE STEWART Room: [address] IN [facility]#: [id number] Admission: 06/02/21 Attend Phys: Ayan Figueroa Discharge: Date of : 31 Date of Service: 06/06/21 0916 Report #: [id number] MV E Max Maverick.: 0.84 m/s MV PHT: 74.51 ms MVA (PHT): 2.95 cm2 TDI E/Lateral E': 9.33 E/Medial E': 14.00 Medial E' Maverick.: 0.06 m/s Lateral E' Maverick.: 0.09 m/s Tricuspid Valve RAP Estimate: 5.00 mmHg TR Peak Gr.: 50.25 mmHg RVSP: 55.00 mmHg PA Pressure: 55.00 mmHg Left Ventricle Left ventricle is mildly dilated. There is global hypokinesis with akinesis of the basal to mid inferior and inferolateral wall. Borderline concentric left ventricular hypertrophy. Left ventricular systolic function is moderately decreased. LVEF is 35 to 40%. Grade I - abnormal relaxation pattern. Right Ventricle The right ventricle is normal size. The right ventricular systolic function is normal. Atria Left atrium is moderately dilated. The right atrium size is normal. Aortic Valve Mild aortic valve sclerosis. Trace aortic regurgitation. Mild aortic stenosis. Mitral Valve There is mitral annular calcification. Mild mitral regurgitation. No evidence of mitral valve stenosis. Tricuspid Valve The tricuspid valve is normal in structure. Mild tricuspid regurgitation. Moderate pulmonary hypertension. Pulmonic Valve The pulmonary valve is normal in structure. There is no pulmonic valvular regurgitation[place] [address] 2 D/M-MODE ECHOCARDIOGRAM Name: MIKE STEWART Room: [address] IN [facility]#: [id number] Admission: 06/02/21 Attend Phys: Ayan Figueroa Discharge: Date of : 31 Date of Service: 06/06/21 0916 Report #: [id number] The aortic root is normal in size. IVC is not well visualized. Pericardium There is no pericardial effusion. <Conclusion> Left ventricle is mildly dilated. Borderline concentric left ventricular hypertrophy. Left ventricular systolic function is moderately decreased. LVEF is 35 to 40%. Grade I - abnormal relaxation pattern. The right ventricle is normal size. Left atrium is moderately dilated. The right atrium size is normal. Mild aortic valve sclerosis. Trace aortic regurgitation. Mild aortic stenosis. There is mitral annular calcification. Mild mitral regurgitation. The tricuspid valve is normal in structure. Mild tricuspid regurgitation. Moderate pulmonary hypertension. There is no pericardial effusion. There is normal LV segmental wall motion. <ELECTRONICALLY SIGNED> By: Yemi Kramer MD, FACC 06/06/21915 5 5 Yemi Kramer MD, FACC /INF
[2021-06-06] MEDS ORDERED: SPIRONOLACTONE25 MG PO (09:44)
--- NOTE | 2021-06-06 11:08 | EKG ---
[place] [address] ELECTROCARDIOGRAM REPORT Name: MIKE STEWART Room: [address] ADM IN M.R.#: [id number] Admission: 06/02/21 Attend Phys: Ayan Figueroa Discharge: Date of : 31 Date of Service: 06/06/21 0906 Report #: [id number] THIS REPORT FOR: //name// [facility] Test Date: 2021-06-06 Test Time: 09:06:59 Pat Name: MIKE STEWART Department: Room: [address] Gender: M Care Services Manager: SAMMI : 1935 Requested By: Yemi Kramer Order Number: [id number] Rachele MD: Shine Harper Measurements Intervals [place]el Rate: 54 P: 0 IN: 37 QRS: -63 QRSD: 206 T: 114 QT: 529 QTc: 502 Interpretive Statements Atrial-ventricular dual-paced complexes with moderately frequent PVCs No further analysis attempted due to paced rhythm Baseline wander in lead(s) I Compared to ECG 06/06/2021 05:55:28 No significant changes Electronically Signed On 06-06-2021 11:07:39 [employer] by Shine Hraper [email or web address] <ELECTRONICALLY SIGNED> By: Shine Harper MD, FACC 06/06/21 1107 5 5 Shine Harper MD, FAC /EPI
[2021-06-06 11:38] VITALS: BP 130/79
[2021-06-06 12:30] LABS: CALCIUM 8.2 mg/dL (8.5-10.1); CREATININE 1.6 mg/dL (0.6-1.3); POTASSIUM 3.3 mmol/L (3.5-5.1)
[2021-06-06 12:49] VITALS: BP 130/79
== END 2021-06-06 13:35 | disposition home health service (06) | DRG 226 ==
LOC: M.ERS 14:05 → M.TBA-ER 15:29 → M.2W 15:29 → M.TBA-ER 06-03 14:48 → M.2W 06-03 16:00
PROVIDERS: Emergency Medicine Emergency Medical Services; Internal Medicine Cardiovascular Disease; ADMIT Internal Medicine; ATTEND Internal Medicine
DX: I44.1 Atrioventricular block, second degree (principal); I50.43 Acute on chronic combined systolic (congestive) and diastolic (congestive) heart failure; N17.9 Acute kidney failure, unspecified; I13.0 Hypertensive heart and chronic kidney disease with heart failure and stage 1 through stage 4 chronic kidney disease, or unspecified chronic kidney disease; Z20.822 Contact with and (suspected) exposure to COVID-19; E78.5 Hyperlipidemia, unspecified; N18.30 Chronic kidney disease, stage 3 unspecified; I25.5 Ischemic cardiomyopathy; E11.22 Type 2 diabetes mellitus with diabetic chronic kidney disease; I25.10 Atherosclerotic heart disease of native coronary artery without angina pectoris; G20 Parkinson's disease; E87.6 Hypokalemia; I35.0 Nonrheumatic aortic (valve) stenosis; Z79.899 Other long term (current) drug therapy; Z85.51 Personal history of malignant neoplasm of bladder; Z88.2 Allergy status to sulfonamides; Z88.8 Allergy status to other drugs, medicaments and biological substances; Z88.1 Allergy status to other antibiotic agents; Z91.040 Latex allergy status; Z82.49 Family history of ischemic heart disease and other diseases of the circulatory system

== ENCOUNTER → 2021-06-20 | Outpatient (CLI) | payer OTHER ==
[~2021-06-20] MED LIST changes: +D3-200050 MCG PO; +LIPITOR 20 MG T20 M1 PO; +NORVASC 2.5 MG2.5 M1 PO; +SPIRONOLACTONE25 MG PO
[2021-06-20 14:14] LABS: ALBUMIN 3.7 g/dL (3.4-5.0); CALCIUM 9.4 mg/dL (8.5-10.1); CREATININE 1.7 mg/dL (0.6-1.3); POTASSIUM 4.4 mmol/L (3.5-5.1); TOTAL BILIRUBIN 0.7 mg/dL (<0.1-1.0); TOTAL PROTEIN 7.2 g/dL (6.4-8.2)
== END ==
LOC: M.LAB 12:55
PROVIDERS: ATTEND Registered Nurse
DX: R00.1 Bradycardia, unspecified (principal)